=== PATIENT | female | born 1975 ===

== ENCOUNTER 2018-06-27 01:04 | Emergency (ER) | payer MEDICAID ==
[2018-06-27] MEDS ORDERED: LORazepam 2 MG/ML Syringe IVPUSH ONE (01:33)
[2018-06-27] MEDS ORDERED: Sodium Chloride 0.9% 1,000 ML IV ONE (01:34)
[2018-06-27] MEDS ORDERED: Ondansetron 4 MG/2 ML SDV IVPUSH ONE (01:34)
--- NOTE | 2018-06-27 01:42 | EDM.PDOC ---
ED HPI GENERAL MEDICAL PROBLEM - General Chief Complaint: Neuro Symptoms/Deficits Stated Complaint: possible stroke Time Seen by Provider: 06/27/18 01:25 Source of Information: Reports: Patient History Limitations: Reports: No Limitations - History of Present Illness INITIAL COMMENTS - FREE TEXT/NARRATIVE: Tammy is a 43 year old female with PMH of diabetes, hypertension, hyperlipidemia, heart murmur, asthma, and PCOS who presents to the ED via [facility]. She reports she was watching a movie with her fidino and she suddenly told him she wasn't feeling well. She reports that she then laid on the floor and vomited. Adelfo reports both of her hands and arms clenched up and she was "half responsive." He reports she wasn't completely unresponsive, but was confused, so he called EMS. He reports she was incontinent of urine as well during this. Patient reports she believes she remembers most of the episode , but not real clearly. Does recall EMS arriving. No report of tonic clonic posturing. Upon ED presentation, patient is alert and oriented. Reports she is feeling much better. No neurologic deficit. She does have significant tremor in BUE. Reports she does have history of anxiety and does feel very anxious due to all of this. Denies any significant anxiety/panic attack prior to symptom onset. She does report that for the past week or so she hasn't really felt well. Reports she has had more body aches. Thinks maybe she had a fever, but did not check her temperature. Does c/o headache, nausea, dysuria, chronic shortness of breath. She denies any chest pain, dizziness, confusion, weakness, vision changes, diarrhea. She does report she smokes marijuana for her anxiety. Last smoked Wednesday. Denies any other illicit drug or ETOH use. Reports she does drink a lot of Mountain Dew. She is a daily smoker. Stroke code was initiated upon patient arrival prior to my examination. Was noted by and EMS to have left sided weakness and questionable left facial droop. Upon arrival to ED, which was greater than 60 minute transport time, patient has no obvious neurologic deficit. She has equal strength throughout. Is alert and oriented. Reports she is feeling much better. Given no acute motor deficits, no indication for TPA. NIH 0. Onset: Today, Sudden Onset Date: 06/26/18 Onset Time: 23:30 Duration: Resolved Prior to Arrival Location: Reports: Generalized Associated Symptoms: Reports: Confusion, Diaphoresis, Malaise, Nausea/Vomiting, Seizure (questionable), Shortness of Breath, Weakness. Denies: Chest Pain, Cough, Fever/Chills, Headaches - Related Data Allergies Allergy/AdvReac Type Severity Reaction Status Date / Time amoxicillin Allergy Hives Verified 10/30/17 20:35 Home Meds: Home Meds . [No Known Home Meds] 06/27/18 [History] Past Medical History Cardiovascular History: Reports: Heart Murmur, High Cholesterol, Hypertension Respiratory History: Reports: Asthma Social & Family History - Recreational Drug Use Recreational Drug Type: Reports: Marijuana/Hashish ED ROS GENERAL - Review of Systems Review Of Systems: See Below Constitutional: Reports: Malaise, Weakness, Diaphoresis. Denies: Fever, Chills HEENT: Denies: Vision Change Respiratory: Reports: Shortness of Breath. Denies: Wheezing, Pleuritic Chest Pain, Cough, Sputum Cardiovascular: Denies: Chest Pain, Edema, Lightheadedness, Syncope GI/Abdominal: Reports: Nausea, Vomiting. Denies: Abdominal Pain, Constipation, Diarrhea, Hematemesis, Stool Incontinence : Reports: Dysuria, Incontinence. Denies: Frequency, Hematuria, Urgency Musculoskeletal: Reports: Muscle Stiffness Skin: Reports: No Symptoms Neurological: Reports: Headache, Numbness, Tremors, Weakness. Denies: Confusion , Dizziness Psychiatric: Reports: Anxiety Hematologic/Lymphatic: Reports: No Symptoms Immunologic: Reports: No Symptoms - Physical Exam Exam: See Below Exam Limited By: No Limitations General Appearance: Alert, WD/WN, No Apparent Distress Eye Exam: Bilateral Eye: EOMI, Normal Fundi, Normal Inspection, PERRL Throat/Mouth: Normal Inspection, Normal Lips, Normal Teeth, Normal Gums, Normal Oropharynx, Normal Voice, No Airway Compromise Head Exam: Atraumatic, Normocephalic Neck: Normal Inspection, Supple, Non-Tender, Full Range of Motion Respiratory/Chest: No Respiratory Distress, Lungs Clear, Normal Breath Sounds, No Accessory Muscle Use, Chest Non-Tender Cardiovascular: Normal Peripheral Pulses, Regular Rate, Rhythm, No Edema, No Gallop, No JVD, No Murmur, No Rub, Systolic Murmur GI/Abdominal: Normal Bowel Sounds, Soft, Non-Tender, No Organomegaly, No Distention, No Abnormal Bruit, No Mass Neuro Exam (Abbreviated): Alert, Oriented, CN II-XII Intact, Normal Cognition, Normal Reflexes, No Motor/Sensory Deficits, Memory Loss Recent Events, Other ( Tremor BUE) Back Exam: Normal Inspection, Full Range of Motion. No: CVA Tenderness (L), CVA Tenderness (R) Extremities: Normal Inspection, Normal Range of Motion, Non-Tender, No Pedal Edema, Normal Capillary Refill Psychiatric: Anxious Skin Exam: Warm, Dry, Intact, Normal Color, No Rash Course - Vital Signs Last Recorded V/S: Last Vital Signs Temp 98.5 F 06/27/18 02:50 Pulse 96 06/27/18 02:50 Resp 20 06/27/18 02:50 BP 127/84 06/27/18 02:50 Pulse Ox 99 06/27/18 02:50 - Orders/Labs/Meds Labs: Laboratory Tests 06/27/18 06/27/18 06/27/18 Range/Units 01:19 01: 01:19 WBC 20.0 H (5.0-10.0) 10^3/uL RBC 5.38 (4.00-5.50) 10^6/uL Hgb 16.0 (12.0-16.0) g/dL Hct 46.2 (37.0-47.0) % MCV 85.9 (82.0-94.0) fL MCH 29.7 (27.0-32.0) pg MCHC 34.6 (33.0-38.0) g/dL RDW Coeff of [place] 14.4 (11.0-15.0) % Plt Count 315 (150-400) 10^3/uL Neut % (Auto) 78.4 (35-85) % Lymph % (Auto) 12.8 (10-55) % Bee % (Auto) 8.4 (0-16) % Eos % (Auto) 0.2 (0-5) % Baso % (Auto) 0.2 (0-3) % Neut # (Auto) 15.65 H (1.80-7.00) 10^3/uL Lymph # (Auto) 2.56 (1.00-4.80) 10^3/uL Bee # (Auto) 1.67 H (0.00-0.80) 10^3/uL Eos # (Auto) 0.04 (0.00-0.45) 10^3/uL Baso # (Auto) 0.03 10^3/uL PT 10.1 (9.7-12.3) SEC INR 0.97 (0.92-1.18) APTT 25.6 (23.2-32.3) SEC Sodium 139 (136-145) mEq/L Potassium 3.4 L (3.5-5.0) mEq/L Chloride 97 L (98-106) mEq/L Carbon Dioxide 23 (21-32) mmol/L BUN 12 (7-18) mg/dL Creatinine 1.2 H (0.6-1.0) mg/dL Est Cr Clr Drug Dosing 50.00 mL/min Estimated GFR (MDRD) 49 L (>=60) mL/min Glucose 142 H (75-99) mg/dL Calcium 9.6 (8.4-10.1) mg/dL Total Bilirubin 0.3 (0.0-1.0) mg/dL AST 18 (15-37) U/L ALT 26 (12-78) U/L Alkaline Phosphatase 87 (46-116) U/L Creatine Kinase 108 (21-215) U/L Troponin I 0.047 (0.00-0.06) ng/mL Total Protein 8.2 (6.4-8.2) g/dL Albumin 4.3 (3.4-5.0) g/dL Urine Color (YELLOW) Urine Appearance (CLEAR) Urine pH (4.5-8.0) Ur Specific [place] (1.003-1.020) Urine Protein (NEGATIVE) mg/dL Urine Glucose (UA) (NEGATIVE) mg/dL Urine Ketones (NEGATIVE) mg/dL Urine Occult Blood (NEGATIVE) Urine Nitrite (NEGATIVE) Urine Bilirubin (NEGATIVE) Urine Urobilinogen (0.2-1.0) EU/dL Ur Leukocyte Esterase (NEGATIVE) Urine RBC (0-5) /HPF Urine WBC (0-5) /HPF Urine Mucus (NOT SEEN) /HPF Urine Opiates Screen (NEGATIVE) Ur Oxycodone Screen (NEGATIVE) Urine Methadone Screen (NEGATIVE) Ur Barbiturates Screen (NEGATIVE) U Tricyclic Antidepress (NEGATIVE) Ur Phencyclidine Scrn (NEGATIVE) Ur Amphetamine Screen (NEGATIVE) U Methamphetamines Scrn (NEGATIVE) Urine MDMA Screen (NEGATIVE) U Benzodiazepines Scrn (NEGATIVE) Urine Cocaine Screen (NEGATIVE) U Marijuana (THC) Screen (NEGATIVE) 06/27/18 06/27/18 Range/Units 01:29 01:29 WBC (5.0-10.0) 10^3/uL RBC (4.00-5.50) 10^6/uL Hgb (12.0-16.0) g/dL Hct (37.0-47.0) % MCV (82.0-94.0) fL MCH (27.0-32.0) pg MCHC (33.0-38.0) g/dL RDW Coeff of [place] (11.0-15.0) % Plt Count (150-400) 10^3/uL Neut % (Auto) (35-85) % Lymph % (Auto) (10-55) % Bee % (Auto) (0-16) % Eos % (Auto) (0-5) % Baso % (Auto) (0-3) % Neut # (Auto) (1.80-7.00) 10^3/uL Lymph # (Auto) (1.00-4.80) 10^3/uL Bee # (Auto) (0.00-0.80) 10^3/uL Eos # (Auto) (0.00-0.45) 10^3/uL Baso # (Auto) 10^3/uL PT (9.7-12.3) SEC INR (0.92-1.18) APTT (23.2-32.3) SEC Sodium (136-145) mEq/L Potassium (3.5-5.0) mEq/L Chloride (98-106) mEq/L Carbon Dioxide (21-32) mmol/L BUN (7-18) mg/dL Creatinine (0.6-1.0) mg/dL Est Cr Clr Drug Dosing mL/min Estimated GFR (MDRD) (>=60) mL/min Glucose (75-99) mg/dL Calcium (8.4-10.1) mg/dL Total Bilirubin (0.0-1.0) mg/dL AST (15-37) U/L ALT (12-78) U/L Alkaline Phosphatase (46-116) U/L Creatine Kinase (21-215) U/L Troponin I (0.00-0.06) ng/mL Total Protein (6.4-8.2) g/dL Albumin (3.4-5.0) g/dL Urine Color Yellow (YELLOW) Urine Appearance Clear (CLEAR) Urine pH 7.0 (4.5-8.0) Ur Specific [place] 1.020 (1.003-1.020) Urine Protein 100 H (NEGATIVE) mg/dL Urine Glucose (UA) 100 H (NEGATIVE) mg/dL Urine Ketones 15 H (NEGATIVE) mg/dL Urine Occult Blood Large H (NEGATIVE) Urine Nitrite Negative (NEGATIVE) Urine Bilirubin Negative (NEGATIVE) Urine Urobilinogen 1.0 (0.2-1.0) EU/dL Ur Leukocyte Esterase Small H (NEGATIVE) Urine RBC 50-75 H (0-5) /HPF Urine WBC 5-10 H (0-5) /HPF Urine Mucus Moderate H (NOT SEEN) /HPF Urine Opiates Screen Negative (NEGATIVE) Ur Oxycodone Screen Negative (NEGATIVE) Urine Methadone Screen Negative (NEGATIVE) Ur Barbiturates Screen Negative (NEGATIVE) U Tricyclic Antidepress Negative (NEGATIVE) Ur Phencyclidine Scrn Negative (NEGATIVE) Ur Amphetamine Screen Negative (NEGATIVE) U Methamphetamines Scrn Positive H (NEGATIVE) Urine MDMA Screen Negative (NEGATIVE) U Benzodiazepines Scrn Negative (NEGATIVE) Urine Cocaine Screen Negative (NEGATIVE) U Marijuana (THC) Screen Positive H (NEGATIVE) Meds: Medications Discontinued Medications Generic Name Dose Route Start Last Admin Trade Name Freq PRN Reason Stop Dose Admin Sodium Chloride 1,000 mls @ 999 mls/hr 06/27/18 01:34 06/27/18 01:56 Normal Saline IV 06/27/18 02:34 999 mls/hr .BOLUS ONE Administration Sodium Chloride 1,000 mls @ 125 mls/hr 06/27/18 03:00 06/27/18 03:00 Normal Saline IV 125 mls/hr ASDIRECTED CHANEL Administration Lorazepam 0.5 mg 06/27/18 01:33 06/27/18 01:59 Ativan IVPUSH 06/27/18 01:34 0.5 mg ONETIME ONE Administration Ondansetron HCl 4 mg 06/27/18 01:34 06/27/18 01:56 Zofran IVPUSH 06/27/18 01:35 4 mg STAT ONE Administration - Radiology Interpretation Free Text/Narrative:: Head CT negative for any acute changes. CT Results Date: 06/27/18 CT Results Time: 02:31 - Re-Assessments/Exams Free Text/Narrative Re-Assessment/Exam: 06/27/18 02:15 Discussed questionable seizure activity with patient. She denies [place] [address]. Troponin 0.047. K 3.4. Creatinine 1.2. Labs otherwise stable. Awaiting UA/tox screen. Discussed transfer to higher level or care with MRI capability to which patient agreed. CT head negative for acute abnormality. Consulted with [facility] hospitalist Dr. Diane who accepted the patient for transfer. 06/27/18 02:28 Discussed urine tox results with patient. She adamantly denies any meth use. Reports the only drug she has done in years is marijuana. Will get urine culture. Small leukocyte esterase and some pyuria. RBCs in urine , however patient has menstrual cycle. Discussed risks and benefits of transfer with patient and family. Risks of transfer include worsening of condition, , and MVA enroute. Benefits of transfer include neurology consultation and MRI capability. Risks of nontransfer include worsening of condition, , no neurology/MRI. Benefits of nontransfer include convenience and close proximity to home. Patient verbalized understanding and was agreeable to transfer via EMS. Departure - Departure Time of Disposition: 02:52 Disposition: DC/Tfer to [facility] 02 Condition: Fair Clinical Impression: Seizure Hypertension Qualifiers: Hypertension type: unspecified Qualified Code(s): I10 - Essential (primary) hypertension - Discharge Information Referrals: PCP,None [Primary Care Provider] - Forms: ED Department Discharge - Problem List & Annotations (1) Seizure SNOMED Code(s): 07417862 Code(s): R56.9 - UNSPECIFIED CONVULSIONS Status: Acute (2) Drug abuse SNOMED Code(s): 17381924 Code(s): F19.10 - OTHER PSYCHOACTIVE SUBSTANCE ABUSE, UNCOMPLICATED Status : Acute (3) Hypertension SNOMED Code(s): 70716117 Code(s): I10 - ESSENTIAL (PRIMARY) HYPERTENSION Status: Acute Qualifiers: Hypertension type: unspecified Qualified Code(s): I10 - Essential (primary ) hypertension - Problem List Review Problem List Initiated/Reviewed/Updated: Yes - Assessment/Plan Plan: Recommend transfer for MRI given unknown cause of recent neurologic abnormality. CT head if negative for acute findings. Transfer to [id number] via [facility]. Patient discharged in satisfactory condition. Transport provided by [facility]. PLEASE SEE NURSES NOTE FOR PMH, PSH, SH, & FH.
[2018-06-27] MEDS ORDERED: Sodium Chloride 0.9% 1,000 ML IV SCH (03:00)
== END 2018-06-27 03:45 ==
LOC: CC.ED 01:04
DX: R56.9 Unspecified convulsions (principal); E11.9 Type 2 diabetes mellitus without complications; I10 Essential (primary) hypertension; Z88.1 Allergy status to other antibiotic agents
CPT/HCPCS: 36415; 70450; 80053; 80305-QW; 81001; 82550; 84484; 85025; 85610; 85730; 87086; 93005; 96361; 96374; 96375; 99285; J2060; J2405; J7030